=== PATIENT | male | born 1980 | race Caucasian/White ===

== ENCOUNTER 2023-10-15 04:24 | Observation (INO) ==
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
[2023-10-15] MEDS: ONDANSETRON INJ 2 MG/ML 2 ML VIAL IV STA (04:49)
[2023-10-15] MEDS: MoRPHine SULFATE 4 MG/ML 1 ML CARP\\VIAL IV STA (04:52)
[2023-10-15] MEDS: LACTATED RINGER'S 1,000 ML IV ONE (04:55)
[2023-10-15 05:21] LABS: Basophils # (auto) 0.06 K/uL (0.00-0.20); Basophils % (auto) 1.1 %; Eosinophils # (auto) 0.41 K/uL (0.00-0.50); Eosinophils % (auto) 7.6 %; Hematocrit (blood only) 44.4 % (42.0-52.0); Hemoglobin 15.4 g/dl (14.0-18.0); Immature Granulocytes # (auto) 0.02 K/uL (0.01-0.20); Immature Granulocytes % (auto) 0.4 %; Lymphocytes # (auto) 1.66 K/uL (1.20-3.40); Lymphocytes % (auto) 30.6 %; Mean Corpuscular Hgb Conc 34.7 g/dL (32.0-36.0); Mean Corpuscular Volume 89.3 fL (80.0-100.0); Mean Platelet Volume 9.5 fL (9.4-12.4); Monocytes # (auto) 0.76 K/uL (0.11-0.59); Neutrophils # (auto) 2.52 K/uL (1.40-6.50); Neutrophils % (auto) 46.3 %; Platelet Count 238 K/uL (130-400); RDW Coefficient of Variation 11.7 % (11.5-14.5); RDW Standard Deviation 38.3 fL (36.4-46.3); Red Blood Count 4.97 M/uL (4.70-6.10); White Blood Count 5.43 K/ul (4.8-10.8)
[2023-10-15] MEDS: OPTIRAY 320 100ml IV ONE (05:21)
[2023-10-15 05:34] LABS: Albumin Globulin Ratio 1.5 (0.9-2); Albumin Level 4.6 gm/dl (3.4-5.0); BUN Creatinine Ratio 14.3 (10-20); Bilirubin,Total 0.3 mg/dl (0.2-1.0); Calcium 9.5 mg/dl (8.6-10.3); Creatinine Clr Calc Pharmacy 134.4 ml/min; Est GFR (African American) 127.9 ml/min; Est GFR (Non-African American) 110.4 ml/min; Globulin 3.1 gm/dl (2.5-4.0); Magnesium 1.7 mg/dl (1.7-2.4); Total Protein 7.7 gm/dl (6.0-8.3)
[2023-10-15] MEDS: HYDROmorphone INJ 0.5 MG/0.5 ML SYR IV PRN (05:39)
[2023-10-15 05:40] LABS: Troponin I High Sensitivity 4.8 pg/ml (0-20)
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
[2023-10-15] MEDS: DIPHTHER/TETAN/PERTUS Vaccine (Tdap, Adol/Adult) 0.5mL IM ONE (05:45)
[2023-10-15 06:00] VITALS: O2SAT 97
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
[2023-10-15 06:08] LABS: iSTAT Creatinine 0.7 mg/dl (0.6-1.3); iSTAT Hemoglobin 15.6 g/dl (14.0-18.0); iSTAT Ionized Calcium 1.14 mmol/l (1.12-1.32); iSTAT Potassium 3.9 mmol/L (3.3-5.0)
[2023-10-15 06:54] VITALS: RESP 20
[2023-10-15] MEDS ORDERED: POLYETHYLENE (MIRALAX) 17 GM PACK PO PRN (06:57)
[2023-10-15] MEDS ORDERED: NITROGLYCERIN SL 0.4 MG/TAB TAB SL PRN (06:57)
[2023-10-15] MEDS: SODIUM CHLORIDE 0.9% 1,000 ML IV SCH (07:18)
[2023-10-15] MEDS: oxyCODONE HCL IR 5 MG TAB (IMMEDIATE RELEASE) PO PRN (07:21)
--- NOTE | 2023-10-15 08:03 | XRay Report ---
XR chest 1V portable HISTORY: Chest pain, nonspecific COMPARISON: Chest 01/03/2007. FINDINGS: No pneumothorax. No pleural effusions. The cardiac silhouette is normal in size. There is a punctate calcified granuloma within the left upper lobe. Otherwise, the lungs are clear. No acute fr actures identified. IMPRESSION: No acute process. ACT 112: Negative or not required by law. Electronically signed by: Adryan Rangel M.D. 10/15/2023 8:01 AM
[2023-10-15] MEDS: ACETAMINOPHEN 325 MG TAB PO PRN (10:27)
[2023-10-15 10:40] VITALS: PULSE 63; TEMP 97.9
[2023-10-15 11:49] LABS: Bilirubin,Total 0.4 mg/dl (0.2-1.0); Magnesium 1.6 mg/dl (1.7-2.4)
[2023-10-15 11:55] LABS: BUN Creatinine Ratio 14.1 (10-20); Creatinine Clr Calc Pharmacy 145.7 ml/min; Est GFR (African American) 132.3 ml/min; Est GFR (Non-African American) 114.1 ml/min; Total Protein 6.6 gm/dl (6.0-8.3)
--- NOTE | 2023-10-15 12:04 | Electrocardiogram Report ---
Test Reason : Blood Pressure : */* mmHG Vent. Rate : 70 BPM Atrial Rate : 70 BPM P-R Int : 184 ms QRS Dur : 110 ms QT Int : 396 ms P-R-T Axes : 3 39 23 degrees QTcB Int : 427 ms Normal sinus rhythm Incomplete right bundle branch block Borderline ECG When compared with ECG of 03-Jan-2007 12:57, No significant change was found Confirmed by Kingsley Miles ([id number]) on 10/15/2023 12:03:53 PM Referred By: REFERRED SELF Confirmed By: Kingsley Miles
--- NOTE | 2023-10-15 12:17 | Electrocardiogram Report ---
Test Reason : Blood Pressure : */* mmHG Vent. Rate : 59 BPM Atrial Rate : 59 BPM P-R Int : 184 ms QRS Dur : 108 ms QT Int : 410 ms P-R-T Axes : 6 31 9 degrees QTcB Int : 405 ms Sinus bradycardia Incomplete right bundle branch block Otherwise normal ECG When compared with ECG of 15-Oct-2023 04:37, No significant change was found Confirmed by Kingsley Miles ([id number]) on 10/15/2023 12:16:37 PM Referred By: REFERRED SELF Confirmed By: Kingsley Miles
[2023-10-15 15:19] VITALS: BP 157/103
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
== END 2023-10-15 15:40 | disposition home or self-care (01) ==
LOC: ED 04:24 → 2S 04:24 → SUATTDRO 06:03 → 2S 06:17

== ENCOUNTER 2023-10-27 07:49 | Observation (INO) ==
[2023-10-27] MEDS: SODIUM CHLORIDE 0.9% 500 ML IV STA (08:10)
[2023-10-27] MEDS: ONDANSETRON INJ 2 MG/ML 2 ML VIAL IV STA (08:10)
[2023-10-27] MEDS: KETOROLAC TROMETHAMINE 15 MG/ML VIAL IV STA (08:11)
[2023-10-27 08:39] LABS: Basophils # (auto) 0.07 K/uL (0.00-0.20); Basophils % (auto) 1.2 %; Eosinophils # (auto) 0.15 K/uL (0.00-0.50); Eosinophils % (auto) 2.5 %; Hematocrit (blood only) 43.7 % (42.0-52.0); Hemoglobin 15.9 g/dl (14.0-18.0); Immature Granulocytes # (auto) 0.02 K/uL (0.01-0.20); Immature Granulocytes % (auto) 0.3 %; Lymphocytes # (auto) 1.08 K/uL (1.20-3.40); Lymphocytes % (auto) 18.1 %; Mean Corpuscular Hemoglobin 31.5 pg (25.0-34.0); Mean Corpuscular Hgb Conc 36.4 g/dL (32.0-36.0); Mean Corpuscular Volume 86.5 fL (80.0-100.0); Mean Platelet Volume 9.7 fL (9.4-12.4); Monocytes # (auto) 0.47 K/uL (0.11-0.59); Monocytes % (auto) 7.9 %; Neutrophils # (auto) 4.18 K/uL (1.40-6.50); Platelet Count 313 K/uL (130-400); RDW Coefficient of Variation 11.5 % (11.5-14.5); RDW Standard Deviation 36.7 fL (36.4-46.3); Red Blood Count 5.05 M/uL (4.70-6.10); White Blood Count 5.97 K/ul (4.8-10.8)
[2023-10-27 09:00] LABS: Albumin Globulin Ratio 1.4 (0.9-2); Albumin Level 4.8 gm/dl (3.4-5.0); BUN Creatinine Ratio 9.1 (10-20); Bilirubin,Total 0.9 mg/dl (0.2-1.0); Creatinine Clr Calc Pharmacy 138.4 ml/min; Est GFR (African American) 127.9 ml/min; Est GFR (Non-African American) 110.4 ml/min; Globulin 3.4 gm/dl (2.5-4.0); Potassium 4.2 mmol/L (3.5-5.1); Total Protein 8.2 gm/dl (6.0-8.3)
[2023-10-27 09:09] LABS: Appearance Urine Clear (Clear); Bilirubin Urine Negative (Negative); Blood Urine Negative (Negative); Color Urine Yellow; Glucose Urine UA Negative (Negative); Ketones Urine Trace (Negative); Leukocyte Esterase Urine Negative (Negative); Nitrite Urine Negative (Negative); Protein Urine Negative (Negative); Specific Gravity Urine 1.016 (1.000-1.030); Urobilinogen Urine Negative (Negative); pH Urine 8.5 (4.5-7.5)
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
[2023-10-27] MEDS: MoRPHine SULFATE 4 MG/ML 1 ML CARP\\VIAL IV STA ×2 (09:27→10:14)
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
--- NOTE | 2023-10-27 11:57 | XRay Report ---
XR ribs RT min 2V w CXR1V CLINICAL HISTORY: R/o rib fx. Fall. Right rib pain. COMPARISON STUDY: Chest 10/15/2023. FINDINGS: No pneumothorax. No pleural effusions. The lungs are clear. The heart is normal in size. No acute rib fractures. IMPRESSION: No rib fractures. No pneumothorax. ACT 112: Negative or not required by law. Electronically signed by: Adryan Rangel M.D. 10/27/2023 11:56 AM
--- NOTE | 2023-10-27 12:16 | Ultrasound Report ---
US gallbladder CLINICAL HISTORY: Back pain. R/o cholecystitis COMPARISON STUDY: CT of the abdomen and pelvis October 26, 2023. FINDINGS: Hepatic echogenicity is increased. There are no hepatic lesions. There is no biliary ductal dilatation. There are no gallstones. No sonographic Lopes sign is present. The pancreas is partiall y obscured. Visualized portions are normal. There is no right hydronephrosis. IMPRESSION: 1. Normal gallbladder. 2. Hepatic steatosis. ACT 112: Negative or not required by law. Electronically signed by: Devan Torres M.D. 10/27/2023 12:15 PM
[2023-10-27] MEDS ORDERED: POLYETHYLENE (MIRALAX) 17 GM PACK PO PRN (12:20)
[2023-10-27] MEDS: BACLOFEN 10 MG TAB PO PRN (12:36)
[2023-10-27] MEDS: MoRPHine SULFATE 4 MG/ML 1 ML CARP\\VIAL IV PRN (12:37)
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
[2023-10-27 12:46] LABS: Amphetamines+Metham, Urine Neg (Neg); Barbiturates, Urine Neg (Neg); Benzodiazepine, Urine Neg (Neg); Cocaine, Urine Neg (Neg); Fentanyl, Urine Neg (Neg); MDMA (Ecstacy), Urine Neg (Neg); Marijuana, Urine Pos (Neg); Methadone, Urine Neg (Neg); Opiate, Urine Pos (Neg); Phencyclidine, Urine Neg (Neg)
[2023-10-27] MEDS: predniSONE 20 MG TAB PO SCH (13:59)
[2023-10-27 20:58] VITALS: RESP 18
[2023-10-27] MEDS: DOCUSATE SODIUM 100 MG CAP PO SCH (21:00)
[2023-10-28 07:26] VITALS: BP 128/77; PULSE 59; TEMP 97.7; O2SAT 98
[2023-10-28 07:29] LABS: Hematocrit (blood only) 41.2 % (42.0-52.0); Hemoglobin 14.1 g/dl (14.0-18.0); Mean Corpuscular Hemoglobin 30.5 pg (25.0-34.0); Mean Corpuscular Hgb Conc 34.2 g/dL (32.0-36.0); Mean Platelet Volume 9.9 fL (9.4-12.4); Platelet Count 258 K/uL (130-400); RDW Coefficient of Variation 11.6 % (11.5-14.5); Red Blood Count 4.63 M/uL (4.70-6.10); White Blood Count 8.74 K/ul (4.8-10.8)
[2023-10-28 08:01] LABS: Albumin Globulin Ratio 1.4 (0.9-2); Albumin Level 4.1 gm/dl (3.4-5.0); BUN Creatinine Ratio 11.6 (10-20); Bilirubin,Total 0.6 mg/dl (0.2-1.0); Calcium 9.1 mg/dl (8.6-10.3); Creatinine Clr Calc Pharmacy 154.4 ml/min; Est GFR (African American) 133.8 ml/min; Est GFR (Non-African American) 115.5 ml/min; Globulin 2.9 gm/dl (2.5-4.0); Magnesium 1.9 mg/dl (1.7-2.4); Phosphorus 3.6 mg/dl (2.5-4.9); Potassium 3.9 mmol/L (3.5-5.1)
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
[2023-10-29 11:33] LABS: Codeine Urine NEGATIVE ng/mL (<50); Hydrocodone Urine NEGATIVE ng/mL (<50); Hydromor Urine NEGATIVE ng/mL (<50); Marijuana Quant, GCMS Urine 112 ng/mL (<5); Morphine Urine 141 ng/mL (<50); Norhydrocodone Conf Ur NEGATIVE ng/mL (<50); Noroxycodone Urine 451 ng/mL (<50); Oxycodone Urine 83 ng/mL (<50); Oxymorph Urine 151 ng/mL (<50)
== END 2023-10-28 13:40 | disposition home or self-care (01) ==
LOC: ED 07:49 → 3W 07:49 → SUATTDRO 10:39 → 3W 11:59